=== PATIENT | female | born 1960 | race Caucasian/White ===

== ENCOUNTER → 2016-12-21 | Outpatient (CLI) | payer BC ==
[~2016-12-21] MED LIST: CENESTIN0.9 MG PO; LEXAPRO20 MG PO; MEDROL 4MG DOSPA4 MG PO; NORCO 325 MG-51 TAB PO; PERCOCET 325 MG1 TAB PO; PRILOSEC 20MG20 MG PO; VOLTAREN-XR100 MG PO
== END ==
LOC: MC.RAD 15:04
DX: Z12.31 Encounter for screening mammogram for malignant neoplasm of breast (principal)

== ENCOUNTER 2017-02-07 12:32 | Emergency (ER) | payer BC ==
[~2017-02-07] VITALS: Ht 160 cm; Wt 71.4 kg
[~2017-02-07 12:32] MED LIST changes: -NORCO 325 MG-51 TAB PO
[2017-02-07 12:37] VITALS: BP 137/75; TEMP 98.2
[2017-02-07] MEDS ORDERED: NORCO 325 MG-51 TAB PO (13:55)
[2017-02-07 14:06] VITALS: PULSE 75
== END 2017-02-07 14:06 | disposition home or self-care (01) ==
LOC: COL.ER 12:32
DX: S62.512A Displaced fracture of proximal phalanx of left thumb, initial encounter for closed fracture (principal); W18.39XA Other fall on same level, initial encounter; Y92.008 Other place in unspecified non-institutional (private) residence as the place of occurrence of the external cause; Z98.1 Arthrodesis status

== ENCOUNTER → 2020-07-30 | Outpatient (CLI) | payer BC ==
[~2020-07-30] MED LIST changes: +NORCO 325 MG-51 TAB PO
== END ==
LOC: MC.RAD 16:00
DX: Z12.31 Encounter for screening mammogram for malignant neoplasm of breast (principal)